=== PATIENT | male | born 1990 | race Caucasian/White ===

== ENCOUNTER 2016-07-22 09:08 | Inpatient (IN) | payer OTHER ==
--- NOTE | ~2016-07-22 | HP ---
Unit #: [id number] #: [id number] Patient: SAHRA HYMAN [id number] [address] [address] [id number] MR#: [id number] NAME: SAHRA HYMAN ROOM: [facility] Age: 25 Sex: M Admission Date: 07/22/2016 : 1990 Attending Physician: Oksana Aguilera M.D. Primary Care Physician: Primary Care Physician No HISTORY AND PHYSICAL ADDENDUM Thirty-one minutes critical care time spent in the care of this patient (12:50 to 1:21 p.m.). Dictated by Alex Gandara/casper TD: 07/22/2016 14:32 JOB #: [id number] HISTORY AND PHYSICAL X Oksana Aguilera MD HISTORY AND PHYSICAL
--- NOTE | ~2016-07-22 | CO ---
Unit #: [id number] #: [id number] Patient: SAHRA HYMAN [id number] [address] [address] [id number] I MR#: [id number] NAME: SAHRA HYMAN ROOM: [facility] Age: 25 Sex: M Admission Date: 07/22/2016 : 1990 Attending Physician: Oksana Aguilera M.D. Primary Care Physician: No Primary Care Physician CONSULTATION REPORT REASON FOR CONSULTATION Critical care management. CHIEF COMPLAINT Vomiting blood. 25-year-old male with no past medical history who presented with vomiting blood and blood in the stools. Had an EGD done. Did not show any acute bleed. I am seeing patient at bedside. Denies any headache, blurry vision, chest pain. PHYSICAL EXAMINATION VITAL SIGNS: Temperature 98, pulse 87, respirations 12, blood pressure 137/70. NEUROLOGICAL: Awake, alert, oriented. No neuro deficit. HEENT: PERRLA. NECK: Supple. No JVD. CHEST: Bilateral air entry, bilateral mild rhonchi. GI: Nontender, soft. Bowel sounds positive. EXTREMITIES: No edema. SKIN: No rashes, no ulcers. LYMPHATIC: No lymphadenopathy. DIAGNOSTIC STUDIES Labs and imaging have been reviewed. PAST MEDICAL HISTORY None. SOCIAL HISTORY Smokes marijuana. FAMILY HISTORY Positive for ulcerative colitis. ASSESSMENT AND PLAN 1. Gastrointestinal bleed. 2. Acute blood loss anemia. 3. Abdominal pain. Plan is to transfuse blood, PPI. Follow with gastroenterology. GI/DVT prophylaxis. The patient will be closely monitored. Please see orders for detailed plan. Unit #: [id number] #: [id number] Patient: SAHRA HYMAN Thank you very much for this consultation. Dictated by... Alex Bernabe/markie TD: 07/22/2016 15:56 JOB #: [id number] CONSULTATION REPORT X Joy Ellis MD CONSULTATION REPORT
--- NOTE | ~2016-07-22 | DS ---
Unit #: [id number] #: [id number] Patient: SAHRA HYMAN [id number] [address] [address] [id number] MR#: [id number] NAME: SAHRA HYMAN ROOM: 238 Age: 25 Sex: M Admission Date: 07/22/2016 : 1990 Discharge Date: 07/24/2016 Attending Physician: Eliana Meehan M.D. DISCHARGE SUMMARY REASON FOR ADMISSION Vomiting blood. HISTORY OF PRESENT ILLNESS/HOSPITAL COURSE The patient is a 25-year-old male with relatively unremarkable past medical history, presented after he had several episodes of emesis with bright red blood. Fairly several weeks prior, he had his wisdom teeth removed. He was given a prescription for ibuprofen 800 mg t.i.d. as well as some pain medications. He began taking them and developed some abdominal discomfort and subsequently stopped. On the day of admission, he had several emesis episode with increased abdominal pain. He noticed bright red blood and therefore, he presented to the ER. Initially, his hemoglobin was found to be 5. He did have a blood pressure 92/69, was given appropriate treatment and placed in the ICU. Consultation was placed to Dr. Spaulding, Gastroenterology Services. The patient underwent upper GI endoscopy and received total of 2 units of packed red blood cells through the hospital course. On 07/22/2016, upper GI endoscopy revealed 2 large cratered ulcers in the duodenum. No active bleeding was noted. Gastritis was noted as well. Avoiding NSAIDs in the future were recommended. His H and H were checked on a q.6 basis. His baseline hemoglobin appears to be close to 9 and therefore at the present time, he is currently stable for discharge. He will follow up with his PCP, Dr. Sourav Saldana in approximately 7 to 10 days for repeat CBC. He will be given a prescription for ferrous sulfate 325 mg as well as Protonix 40 mg p.o. b.i.d. at the time of discharge. It is noted that his B12 level was found to be 119 and the patient has weakened and therefore did recommend both multivitamin as well as oral B12 supplementation at the time of discharge. FINAL DISCHARGE DIAGNOSES 1. Acute blood loss anemia. 2. Upper gastrointestinal bleed. 3. Two large duodenal ulcers. Unit #: [id number] #: [id number] Patient: SAHRA HYMAN 4. B12 deficiency. 5. Substance abuse. The patient's urine tox screen positive for marijuana. FINAL DISCHARGE MEDICATIONS Ferrous sulfate 325 mg p.o. daily, [id number] sublingual B12 daily, Protonix 40 mg p.o. b.i.d. DISCHARGE INSTRUCTIONS The patient to have repeat upper GI endoscopy with Dr. Spaulding in approximately 4 to 6 weeks. Dictated by... Alex Rivera/estrella TD: 07/25/2016 03:01 JOB #: [id number] DISCHARGE SUMMARY Page 1 of 1 X Eliana Meehan MD X DISCHARGE SUMMARY
--- NOTE | ~2016-07-22 | EKG ---
PATIENT: SAHRA HYMAN UNIT #: [id number] Ventricular Rate: 136 BPM Atrial Rate: 136 BPM P-R Interval: 122 ms QRS Duration: 74 ms Q-T Interval: 308 ms QTC Calculation(Bezet): 463 ms P [place]: 89 degrees Calculated R [place]: -113 degrees Calculated T [place]: 72 degrees Diagnosis Line: Sinus tachycardia Diagnosis Line: Right superior axis deviation Diagnosis Line: Possible Right ventricular hypertrophy Diagnosis Line: Nonspecific ST abnormality Diagnosis Line: Abnormal ECG Diagnosis Line: No previous ECGs available Diagnosis Line: Confirmed by DAVID PRATER MD ([id number]) on Diagnosis Line: 07/22/2016 8:11:43 PM INTERPRETING MD: PINKY
--- NOTE | ~2016-07-22 | HP ---
Unit #: [id number] #: [id number] Patient: SAHRA HYMAN [id number] [facility] [address] [facility]. [place], [place] [address] [id number] I MR#: [id number] NAME: SAHRA HYMAN ROOM: [address] Age: 25 Sex: M Admission Date: 07/22/2016 : 1990 Attending Physician: Oksana Aguilera M.D. Primary Care Physician: Primary Care Physician No HISTORY AND PHYSICAL CHIEF COMPLAINT Vomiting blood. HISTORY OF PRESENT ILLNESS The patient is a 25-year-old male with no significant past medical history who presented to the emergency department for evaluation of the above. The patient states that he had his wisdom teeth pulled about three weeks ago. He was placed on ibuprofen and hydrocodone. He states that within a couple of days he developed abdominal pain and so he stopped taking both medications. The abdominal pain subsided somewhat until the past couple of days when he has been experiencing epigastric pain. There are no exacerbating or alleviating factors. He started vomiting bright red blood today. Upon arrival in the emergency department, the patient's pulse and blood pressure were 141 and 92/69 respectively. He was given 2 liters of normal saline as well as 80 mg of Protonix and started on a Protonix drip. Two units of packed red blood cells have been ordered and are transfusing. Of note, his hemoglobin is 5. He is being admitted to [facility] for evaluation and further treatment. PAST MEDICAL HISTORY None. PAST SURGICAL HISTORY [place] teeth removal. SOCIAL HISTORY The patient lives with his girlfriend. He smokes marijuana. He denies alcohol or other illicit drug use. 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 FAMILY HISTORY Notable for his father having ulcerative colitis. REVIEW OF SYSTEMS A complete review of systems is negative except as indicated in the HPI. The patient states that he has lost weight over the past couple of weeks, he is not sure exactly how much. PHYSICAL EXAMINATION VITAL SIGNS: Temperature 97.4, pulse 141, respirations 20, blood pressure 92/69. Most recent blood pressure is 91/40. Oxygen saturation 100% on Unit #: [id number] #: [id number] Patient: SAHRA HYMAN room air. GENERAL: The patient is a male who is awake and alert. HEENT: Head is atraumatic. Conjunctivae are pale. Mucous membranes are moist. NECK: Supple. Trachea is midline. LUNGS: Clear to auscultation bilaterally with no increased work of breathing. HEART: Regular rate and rhythm. ABDOMEN: Soft. He is mildly tender to palpation in the epigastric area. Bowel sounds present in all four quadrants. EXTREMITIES: Nontender with no pedal edema. NEUROLOGIC: Patient is awake and alert. He follows commands. PSYCHIATRIC: Mood and affect are normal. Patient is cooperative. SKIN: Generally pale. DIAGNOSTIC STUDIES LABORATORY: Complete blood count notable for white blood cell count of 7.3, hemoglobin 5, hematocrit 14.7, MCV 93.3, RDW 13.8. INR 1.3. Comprehensive metabolic panel notable for sodium 130, potassium 3, chloride 98, bicarb 19, glucose 205, calcium 8.2 but corrects when albumin of 3 is accounted for, total protein is 4.6, magnesium 1.8. CARDIOVASCULAR: EKG shows sinus tachycardia with a rate of 136 beats per minute. ASSESSMENT The patient is a 25-year-old male with: 1. Gastrointestinal bleed. The patient is currently on Protonix drip at 8 mg/hour. 2. Acute blood loss anemia. The patient's hemoglobin is 5 with no baseline for comparison. He is receiving 2 units of packed red blood cells. 3. Abdominal pain. 4. Hypokalemia. 5. Weight loss. 6. Marijuana use. PLAN 1. Admit to ICU. 2. N.p.o. for endoscopy. 3. Transfuse 2 units as previously ordered. 4. Hemoglobin and hematocrit 1 hour after transfusion and q.6 h. 5. Continue Protonix drip at 8 mg/hour. 6. Monitor blood pressure closely. 7. Consult Dr. Spaulding regarding GI bleed. 8. Check magnesium level. 9. Potassium magnesium protocol. 10. Consult Dr. Ellis regarding ICU admission. 11. Repeat labs in the morning. 12. Iron studies, B12 and folate. 13. SCDs for DVT prophylaxis. 14. Additional workup and consultants based on above. Unit #: [id number] #: [id number] Patient: SAHRA HYMAN Dictated by Alex Gandara/casper TD: 07/22/2016 13:56 JOB #: [id number] HISTORY AND PHYSICAL X Oksana Aguilera MD X HISTORY AND PHYSICAL
--- NOTE | ~2016-07-22 | A ---
[facility] Nutrition Therapy DATE: 07/23/16 Patient: SAHRA HYMAN Physician: MARCELLE Address: [facility] Room/Bed: [address], Zip: [place] [address] Admit Date: 07/22/16 Date of : [birth year] Height: 5 11 Weight: 131 59.5 NUTRITIONAL ASSESSMENT: REASON: 2 nutritonal risk points RE: 10# wt loss, low BMI 25 yo male admitted for GI bleed PMH: marijuana use Anthropometrics: HT: 5'11" WT: 59.5 kg (131#) BMI: 18.3 IBW: 172# 76%IBW Labs: Creat 0.5, Ca++ 8.0, Alb 2.6, Iron 39, B12 119, folate 4.8 Meds: Mg, K, Zofran, D5%, protonix I/O & Bowel function: 2794/3117, last BM 07/22 Skin Integrity: Scar (RFA), tattos Estimated Nutrition Needs: Increased d/t low BMI, wt loss Assessment: Chart reviewed, events noted. Pt lost 10# over past 3 weeks after wisdom teeth removal. Per RN, pt was taking medications on empty stomach resulting in 2 ulcers. Pt reported poor intake and appetite past 2 weeks. Pt reports following vegan and gluten free diet past 1.5 years. Pt reports consuming soup, yogurt, and oatmeal for breakfast this morning, which pt is tolerating well. RD encouraged small frequent meals and importance of adequate calories and protein to promote gradual weight gain. RD also encourgaed low fiber diet until GI bleed subsides and/or per MD orders. RD encouraged Ensure, pt agreed. Pt reported no further diet questions at this time. See recommendations below. Dx: Inadequate protein-energy intake RT current clinical condition AEB 18.3 BMI, 76%IBW, 10# wt loss. Intervention: 1. Ensure BID 2. Low fiber diet Monitoring, Evaluation and Goals: 1. PO intake; consume ~80-100% of estimated energy needs 2. Weight; promote gradual weight gain, prevent further unintentional weight loss 3. Labs; WNL Recommendations: [facility] Nutrition Therapy DATE: 07/23/16 Patient: SAHRA HYMAN Physician: MARCELLE Address: [address] [facility] Room/Bed: [address], Zip: [place] [address] Admit Date: 07/22/16 Date of : [birth year] Height: 5 11 Weight: 131 59.5 1. Order chocolate Ensure shakes BID 2. Once medically feasible, advance diet to a low fiber diet until GI bleed subsides and/or per MD orders. Regular diet post low fiber diet. 3. Encourage slow, gradual PO intake per pt tolerance Pt is at a mild nutritional risk. RD will f/u per protocol. Respectfully, RTACEY JENKINS, Federal Appellate Law Clerk Gómez Hammonds MS, RD, LD [facility] Nutrition[facility] Services [facility] cc: client file
--- NOTE | ~2016-07-22 | OR ---
Unit #: [id number] #: [id number] Patient: SAHRA HYMAN [id number] [address] [address] [id number] MR#: [id number] NAME: SAHRA HYMAN ROOM: [facility] Date of Procedure: 07/22/2016 Admission Date: 07/22/2016 Surgeon: Leonidas Spaulding M.D. : 1990 Attending Physician: Eliana Meehan M.D. OPERATIVE REPORT JOB NOTE: CC: PRIMARY CARE PHYSICIAN PROCEDURE PERFORMED Esophagogastroduodenoscopy with biopsies. INDICATIONS A 25-year-old admitted with upper GI bleeding, severe anemia, undergoing upper endoscopy. MEDICATIONS Monitored anesthesia. POSTOPERATIVE FINDINGS 1. Two large cratered ulcers in the duodenum clean based. No active bleeding was seen. 2. Mild gastritis. Biopsies taken looking for H. pylori. 3. Small hiatal hernia. PLAN Continue with aggressive PPI therapy as well as blood transfusion to bring hemoglobin above 8. Avoid NSAIDs. DESCRIPTION OF PROCEDURE The patient was explained of the procedure, risks, and benefits along with risks and benefits of anesthesia. Endo team was brought to the ER. Monitored anesthesia was given. The scope was passed down the mouth into the esophagus, stomach, duodenum, and distal duodenum. Findings as described. Biopsies taken. Gently, the scope was pulled out. He tolerated it well. No major complications were seen. Dictated by... Alex Brito/estrella TD: 07/22/2016 23:15 JOB #: [id number] Unit #: [id number] #: [id number] Patient: SAHRA HYMAN OPERATIVE REPORT X Leonidas Spaulding MD X PROCEDURE OPERATIVE NOTE
[2016-07-22 09:38] LABS: BASOPHIL# 0.1 X10e3 (0-0.3); BASOPHIL% 0.9 % (0-2.5); EOSINOPHIL# 0.1 X10e3 (0-0.7); HEMATOCRIT 14.7 % (38.0-50.0); LYMPHOCYTE# 2.3 X10e3 (1.0-3.5); LYMPHOCYTE% 30.8 % (17.0-45.0); MEAN CELL VOLUME 93.3 FL (83-96); MEAN CORPUSCULAR HGB CONC 34.3 g/dL (30-36); MEAN PLATELET VOLUME 7.9 FL (6.5-11.5); MONOCYTE# 0.6 X10e3 (0-1.0); MONOCYTE% 8.8 % (3.0-12.0); NEUTROPHIL# 4.3 X10e3 (1.5-7.1); NEUTROPHIL% 58.5 % (40-75); PLATELET COUNT 383 X10e3 (140-420); RED BLOOD COUNT 1.57 X10e (3.90-5.60); RED CELL DISTRIBUTION WIDTH 13.8 % (11.0-15.5); WHITE BLOOD COUNT 7.3 X10e3 (4.0-10.5)
[2016-07-22 09:41] LABS: DIFF IND YES
[2016-07-22 09:53] LABS: INR 1.3; PROTHROMBIN TIME (PATIENT) 13.4 SECONDS (9.6-11.5)
[2016-07-22 09:54] LABS: ANISOCYTOSIS SL; PLATELET ESTIMATE NORMAL (NORMAL)
[2016-07-22 10:01] LABS: PARTIAL THROMBOPLASTIN TIME <20.0 SECONDS (23.5-31.3)
[2016-07-22 10:04] LABS: ALKALINE PHOSPHATASE 42 U/L (32-92); ALT (SGPT) 18 U/L (10-40); AST (SGOT) 21 U/L (10-42); BILIRUBIN, DIRECT 0.1 mg/dL (0.0-0.2); BILIRUBIN,INDIRECT 0.3 mg/dL (0.0-0.9); BILIRUBIN,TOTAL 0.4 mg/dL (0.2-2.0); BLOOD UREA NITROGEN 36 mg/dL (9-23); CALCIUM SERUM 8.2 mg/dL (8.4-10.2); CARBON DIOXIDE 19 mmol/L (22-31); CHLORIDE 98 mmol/L (100-111); CREATININE SERUM 0.9 mg/dL (0.6-1.4); GLOM FILT RATE Estimated ABOVE60 mL/min (>60); GLUCOSE FASTING 205 mg/dL (70-110); PROTEIN TOTAL SERUM 4.6 g/dL (6.0-8.3); SODIUM 130 mmol/L (135-145)
[2016-07-22 12:45] LABS: IRON SERUM 39 ug/dL (45-182); TOTAL IRON BINDING CAPACITY 218 ug/dL (252-460); TRANSFERRIN 156 mg/dL (180-329); TRANSFERRIN SATURATION 18 % (20-50)
[2016-07-22 13:01] LABS: FOLATE (FOLIC ACID) 4.8 ng/mL (>5.8)
[2016-07-22] MEDS ORDERED: NO MEDICATIONS (13:51)
[2016-07-22 17:41] LABS: URINE APPEARANCE CLEAR; URINE BILIRUBIN NEG (NEG); URINE BLOOD NEG (NEG); URINE COLOR YELLOW; URINE GLUCOSE NEG (NEG); URINE KETONE TRACE (NEG); URINE LEUKOCYTE ESTERASE NEG (NEG); URINE NITRATE NEG (NEG); URINE PROTEIN NEG (NEG); URINE SPECIFIC GRAVITY 1.023 (1.003-1.035); URINE UROBILINOGEN 0.2 MG/DL (NEG)
[2016-07-22 17:58] LABS: AMPHETAMINE NEG (NEG); BARBITURATES NEG (NEG); BENZODIAZEPINES NEG (NEG); COCAINE NEG (NEG); MARIJUANA POS (NEG); OPIATES NEG (NEG); TRICYCLIC ANTIDEPRESSANTS NEG (NEG); U METHADONE NEG (NEG)
[2016-07-22 18:33] LABS: HEMATOCRIT 20.1 % (38.0-50.0)
[2016-07-22 18:35] LABS: HEMOGLOBIN 6.8 gm/dL (13.0-16.0)
[2016-07-23 00:30] LABS: HEMATOCRIT 21.6 % (38.0-50.0); HEMOGLOBIN 7.4 gm/dL (13.0-16.0); MEAN CORPUSCULAR HEMOGLOBIN 30.9 PG (28-34); MEAN CORPUSCULAR HGB CONC 34.2 g/dL (30-36); MEAN PLATELET VOLUME 7.9 FL (6.5-11.5); RED BLOOD COUNT 2.39 X10e (3.90-5.60); RED CELL DISTRIBUTION WIDTH 13.4 % (11.0-15.5); WHITE BLOOD COUNT 9.8 X10e3 (4.0-10.5)
[2016-07-23 00:36] LABS: MEAN CELL VOLUME 90.3 FL (83-96)
[2016-07-23 07:31] LABS: HEMATOCRIT 25.9 % (38.0-50.0); MEAN CELL VOLUME 89.7 FL (83-96); MEAN CORPUSCULAR HEMOGLOBIN 31.3 PG (28-34); MEAN CORPUSCULAR HGB CONC 34.9 g/dL (30-36); MEAN PLATELET VOLUME 7.6 FL (6.5-11.5); RED BLOOD COUNT 2.89 X10e (3.90-5.60); WHITE BLOOD COUNT 8.6 X10e3 (4.0-10.5)
[2016-07-23 07:41] LABS: INR 1.3; PROTHROMBIN TIME (PATIENT) 13.3 SECONDS (9.6-11.5)
[2016-07-23 08:03] LABS: ALBUMIN SERUM 2.6 g/dL (3.5-5.0); ALKALINE PHOSPHATASE 41 U/L (32-92); ALT (SGPT) 16 U/L (10-40); AST (SGOT) 15 U/L (10-42); BILIRUBIN,TOTAL 0.5 mg/dL (0.2-2.0); BLOOD UREA NITROGEN 15 mg/dL (9-23); CARBON DIOXIDE 22 mmol/L (22-31); CHLORIDE 109 mmol/L (100-111); CREATININE SERUM 0.5 mg/dL (0.6-1.4); GLOM FILT RATE Estimated ABOVE60 mL/min (>60); GLUCOSE FASTING 91 mg/dL (70-110); POTASSIUM 3.9 mmol/L (3.5-5.1); PROTEIN TOTAL SERUM 4.1 g/dL (6.0-8.3); SODIUM 136 mmol/L (135-145)
[2016-07-23 13:03] LABS: HEMATOCRIT 26.6 % (38.0-50.0); HEMOGLOBIN 9.2 gm/dL (13.0-16.0); MEAN CELL VOLUME 89.5 FL (83-96); MEAN CORPUSCULAR HEMOGLOBIN 31.1 PG (28-34); MEAN CORPUSCULAR HGB CONC 34.7 g/dL (30-36); MEAN PLATELET VOLUME 7.5 FL (6.5-11.5); RED BLOOD COUNT 2.97 X10e (3.90-5.60); WHITE BLOOD COUNT 7.9 X10e3 (4.0-10.5)
[2016-07-23 17:54] LABS: HEMATOCRIT 26.9 % (38.0-50.0); HEMOGLOBIN 9.3 gm/dL (13.0-16.0); MEAN CELL VOLUME 90.2 FL (83-96); MEAN CORPUSCULAR HEMOGLOBIN 31.1 PG (28-34); MEAN CORPUSCULAR HGB CONC 34.4 g/dL (30-36); MEAN PLATELET VOLUME 7.1 FL (6.5-11.5); RED BLOOD COUNT 2.98 X10e (3.90-5.60); RED CELL DISTRIBUTION WIDTH 13.9 % (11.0-15.5); WHITE BLOOD COUNT 7.1 X10e3 (4.0-10.5)
[2016-07-24 06:26] LABS: BASOPHIL% 0.5 % (0-2.5); EOSINOPHIL# 0.2 X10e3 (0-0.7); EOSINOPHIL% 2.8 % (0.0-7.0); HEMATOCRIT 25.7 % (38.0-50.0); HEMOGLOBIN 8.8 gm/dL (13.0-16.0); LYMPHOCYTE# 1.3 X10e3 (1.0-3.5); LYMPHOCYTE% 20.7 % (17.0-45.0); MEAN CELL VOLUME 91.1 FL (83-96); MEAN CORPUSCULAR HEMOGLOBIN 31.3 PG (28-34); MEAN CORPUSCULAR HGB CONC 34.4 g/dL (30-36); MEAN PLATELET VOLUME 7.5 FL (6.5-11.5); MONOCYTE# 0.8 X10e3 (0-1.0); MONOCYTE% 12.2 % (3.0-12.0); NEUTROPHIL% 63.8 % (40-75); PLATELET COUNT 195 X10e3 (140-420); RED BLOOD COUNT 2.82 X10e (3.90-5.60); RED CELL DISTRIBUTION WIDTH 14.3 % (11.0-15.5); WHITE BLOOD COUNT 6.3 X10e3 (4.0-10.5)
[2016-07-24 06:29] LABS: DIFF IND NO
[2016-07-24 06:47] LABS: ALBUMIN SERUM 2.6 g/dL (3.5-5.0); ALKALINE PHOSPHATASE 42 U/L (32-92); ALT (SGPT) 15 U/L (10-40); AST (SGOT) 16 U/L (10-42); BILIRUBIN,TOTAL 0.4 mg/dL (0.2-2.0); BLOOD UREA NITROGEN 10 mg/dL (9-23); CALCIUM SERUM 8.3 mg/dL (8.4-10.2); CARBON DIOXIDE 28 mmol/L (22-31); CHLORIDE 108 mmol/L (100-111); CREATININE SERUM 0.8 mg/dL (0.6-1.4); GLOM FILT RATE Estimated ABOVE60 mL/min (>60); GLUCOSE FASTING 93 mg/dL (70-110); PROTEIN TOTAL SERUM 4.4 g/dL (6.0-8.3); SODIUM 140 mmol/L (135-145)
[2016-07-24] MEDS ORDERED: PROTONIX PO (10:54)
[2016-07-24] MEDS ORDERED: FEROSUL325 ( 651 PO (10:54)
[2016-07-24] MEDS ORDERED: CYANOCOBALAMI100 MCG SL (10:55)
== END 2016-07-24 12:55 | disposition left against medical advice (07) | DRG 378 ==
LOC: CED 09:08 → CEDOF 13:00 → CICCU2 14:22 → C2A 07-23 16:28
PROVIDERS: Emergency Medicine; Family Medicine; Internal Medicine
PROC: 0DB68ZX Excision of Stomach, Via Natural or Artificial Opening Endoscopic, Diagnostic (ICD-10-PCS; principal; 2016-07-22 11:41)
DX: K26.4 Chronic or unspecified duodenal ulcer with hemorrhage (principal); D62 Acute posthemorrhagic anemia; E53.8 Deficiency of other specified B group vitamins; K44.9 Diaphragmatic hernia without obstruction or gangrene; F12.10 Cannabis abuse, uncomplicated; E87.6 Hypokalemia; R63.4 Abnormal weight loss; Z68.27 Body mass index [BMI] 27.0-27.9, adult; K29.70 Gastritis, unspecified, without bleeding
CPT/HCPCS: 36415; 80048; 80053; 80076; 80307; 81003; 82607; 82728; 82746; 82947; 83540; 83550; 83735; 84132; 85014; 85018; 85025; 85027; 85610; 85730; 86850; 86900; 86901; 86923; 87086; 88305; 88312; 93005; 96361; 96374; 99291; C9113; J2405; J3420; P9016